=== PATIENT | female | born 1985 | race African-American/Black ===

== ENCOUNTER 2019-06-01 05:44 | Day surgery (SDC) | payer OTHER ==
[~2019-06-01 05:44] MED LIST: LISI1TAB19 PO; METF500T16 PO; PROG100C15 PO; SERT100T PO; TRAZ-118 PO; VENL37.56 PO
[2019-06-01] MEDS ORDERED: ONDANSETRON PF 4 MG/2 ML VIAL. ONE (06:59)
[2019-06-01] MEDS ORDERED: PROPOFOL 20 ML IV ONE (06:59)
[2019-06-01] MEDS ORDERED: LIDOCAINE 2% PF 5 ML VIAL. ONE (06:59)
[2019-06-01] MEDS ORDERED: DEXAMETHASONE SOD PHOS 4 MG/ML VIAL ONE (06:59)
[2019-06-01] MEDS ORDERED: ONDANSETRON PF 4 MG/2 ML VIAL. IV PRN (07:00)
[2019-06-01] MEDS ORDERED: MORPHINE SULFATE 2 MG/ML VIAL. IV PRN (07:00)
[2019-06-01] MEDS ORDERED: fentaNYL PF VIAL 100 MCG/2 ML VIAL IV PRN ×2 (07:00)
[2019-06-01] MEDS ORDERED: IV RINGERS,LACTATED 1000ML 1,000 ML IV SCH (07:00)
[2019-06-01] MEDS ORDERED: HYDROmorphone 2 MG/ML VIAL IV PRN (07:00)
[2019-06-01] MEDS ORDERED: fentaNYL PF VIAL 100 MCG/2 ML VIAL ONE (07:10)
[2019-06-01] MEDS ORDERED: SEVOFLURANE 16 TO 30 MINUTES. IH ONE (07:43)
--- NOTE | 2019-06-01 08:18 | PDOC ---
BRIEF OPERATIVE NOTE Pre-Op Diagnosis AUB Post-Op Diagnosis Same Procedure Performed Dx Hysteroscopy D and C Surgeon Isabella Blood Loss 10cc Specimens Obtained EMC Complications None MALENA SHAIKH MD Jun 01, 2019 08:18
[2019-06-01] MEDS ORDERED: HYDROcodone/APAP 5/325MG 1 TAB TABLET PO ONE (08:30)
--- NOTE | 2019-06-01 08:39 | OP ---
DATE OF SURGERY: 06/01/2019 PREOPERATIVE DIAGNOSIS: Abnormal uterine bleeding. POSTOPERATIVE DIAGNOSIS: Abnormal uterine bleeding. PROCEDURES: 1. Exam under anesthesia. 2. Diagnostic hysteroscopy, D and C with TruClear. SURGEON: Daniel Mason MD INSULATION CUTTER: None. ANESTHESIA: General. ESTIMATED BLOOD LOSS: 10 mL. FLUIDS: Crystalloid. SPECIMENS: Endometrial curettings. COMPLICATIONS: None. CONDITION: Stable. DESCRIPTION OF PROCEDURE: Risks, benefits, indications, alternatives discussed in detail with the patient. The patient was brought to OR theater, placed in dorsal lithotomy position in Jose stirrups. After adequate general anesthesia, the patient was prepped and draped in usual sterile manner. Exam under anesthesia was performed. Uterus was axial approximately 8-week size, no adnexal masses appreciated. Posterior weighted speculum was placed in the vaginal vault. Cervix was grasped with single tooth tenaculum. Cervix was sounded to 8 cm. Cervix was dilated up to receive the TruClear hysteroscope. TruClear hysteroscope was placed. No gross abnormality was seen, bilateral cornua were seen. There were no polyps or submucosal fibroids appreciated. Endometrium appeared to be in secretory state. The hysteroscope was removed. Sharp curettage was then performed. Endometrial curetting was placed on Telfa sponge and handed off the operative field. Single tooth tenaculum was removed. Puncture sites were hemostatic. Vaginal vault was wiped free of any tissue or blood. A posterior weighted speculum was removed. Procedure was terminated. Sponge, needle and instrument counts were correct x 2 per nursing staff. DANIEL MASON MD DR: MARLEN/ellyn JOB#: [id number] / [id number]
[2019-06-01 09:00] VITALS: BP 126/80
--- NOTE | 2019-06-02 15:07 | PATHOLOGY ---
[facility] Accession Number: [id number] . 01 Material submitted: . endometrium - ENDOMETRIAL CURETTINGS . 01 Clinical history: . AUB . 02 Diagnosis: Endometrial curettings: - Weakly proliferative endometrium. - Segments of endocervical mucosa showing active chronic inflammation with focal squamous metaplasia and endocervical microglandular hyperplasia. (JPM:bry; 06/02/2019) QMS 06/02/2019 0948 Local . 02 Comment: There is no evidence of endometrial hyperplasia or malignancy. . 02 Electronically signed: . Shemar Marin MD, Pathologist NPI- [id number] . 01 Gross description: . Received in formalin, labeled "Jamar, Nola, endometrial curettings", consists of friable, red-brown, hemorrhagic soft tissue admixed with mucus measuring 1.3 x 0.6 x 0.2 cm in aggregate. Entirely submitted in A1. ([facility]; 06/01/2019) [facility] 06/01/20192028 Local . 02 Pathologist provided ICD-10: N72 . 02 CPT . 075711 Specimen Comment: A courtesy copy of this report has been sent to Specimen Comment: [phone], . Specimen Comment: Report sent to Performed at: 01 [facility] [address], [place] [id number] MD Yemi Cox MD Phone: [phone] Performed at: 02 [facility] [address] [place], [place] [id number] MD Shemar Marin MD Phone: [phone]
== END 2019-06-01 09:40 | disposition home or self-care (01) ==
LOC: SURG 05:44
PROVIDERS: ATTEND Specialist
DX: N93.9 Abnormal uterine and vaginal bleeding, unspecified (principal); N71.1 Chronic inflammatory disease of uterus
CPT/HCPCS: 58558; 81025; J1100; J2001; J2405; J2704; J3010; 88305; A7015

== ENCOUNTER 2019-06-16 12:35 | Emergency (ER) | payer OTHER ==
[~2019-06-16] VITALS: Ht 177.8 cm; Wt 166.9 kg
[2019-06-16 13:02] LABS: BILIRUBIN,URINE NEGATIVE (NEG); CLARITY,URINE CLEAR; COLOR,URINE YELLOW; NITRITE,URINE NEGATIVE (NEG); PROTEIN,URINE NEGATIVE (NEG-TRACE); UROBILINOGEN,URINE 0.2 mg/dL (0.2 mg/dL)
[2019-06-16 13:05] LABS: SQUAMOUS EPITHELIAL CELL,UR MOD /LPF
[2019-06-16 13:06] LABS: RBC,URINE TNTC /HPF (0-2)
[2019-06-16 13:07] LABS: BACTERIA,URINE FEW /HPF (0-FEW)
[2019-06-16] MEDS ORDERED: MORPHINE SULFATE 4 MG/ML VIAL. IM ONE (13:30)
[2019-06-16] MEDS ORDERED: ONDANSETRON ODT 4 MG TAB.RAPDIS. PO ONE (13:45)
--- NOTE | 2019-06-16 13:56 | PHYS DOC ---
Past Medical History Past Medical History: Anxiety, Depression, Hypertension, Migraines, Other Additional Past Medical Histor: morbid obesity, thyroid cyst (benign), PCOS Past Surgical History: Other Additional Past Surgical Histo: bilat sweat gland removal from axilla,dilation and curettage,adenoidectomy Alcohol Use: Occasionally Drug Use: None Adult General Chief Complaint Chief Complaint: VAGINAL BLEEDING HPI HPI Patient is a 33 year old female who presents to the ED today complaining of vaginal bleeding that began 5 days ago. Patient states she is bleeding heavily including be close, she reports she has used for feminine pads since she woke up this morning. She is also complaining of moderate abdominal cramping with nausea. Patient states she has tried taking her hydrocodone with no relief. She states she had a hysteroscopy done on June 01, 2019 due to heavy bleeding and possibility of endometriosis. She states this is the time of the month she gets her menstrual cycle Review of Systems Review of Systems Constitutional: Denies fever or chills [] Eyes: Denies change in visual acuity, redness, or eye pain [] HENT: Denies nasal congestion or sore throat [] Respiratory: Denies cough or shortness of breath [] Cardiovascular: No additional information not addressed in HPI [] GI: Denies abdominal pain, nausea, vomiting, bloody stools or diarrhea [] : Denies dysuria or hematuria [] Musculoskeletal: Denies back pain or joint pain [] Integument: Denies rash or skin lesions [] Neurologic: Denies headache, focal weakness or sensory changes [] Endocrine: Denies polyuria or polydipsia [] All other systems were reviewed and found to be within normal limits, except as documented in this note. Current Medications Current Medications Current Medications Medications (Trade) Dose Ordered Sig/Jayshree Start Time Stop Time Status Last Admin Dose Admin Morphine Sulfate (Morphine Sulfate) 4 mg 1X ONCE 06/16/19 13:30 06/16/19 13:31 DC 06/16/19 13:47 4 MG Ondansetron HCl (Zofran Odt) 4 mg 1X ONCE 06/16/19 13:45 06/16/19 13:46 DC 06/16/19 13:47 4 MG Allergies Allergies Allergies Coded Allergies Type Severity Reaction Last Updated Verified latex Allergy Intermediate Itching 05/31/19 Yes prochlorperazine Allergy Intermediate muscle spasms 05/31/19 Yes Physical Exam Physical Exam Constitutional: Well developed, well nourished, no acute distress, non-toxic appearance. [] HENT: Normocephalic, atraumatic, bilateral external ears normal, oropharynx moist, no oral exudates, nose normal. [] Eyes: PERRLA, EOMI, conjunctiva normal, no discharge. [] Neck: Normal range of motion, no tenderness, supple, no stridor. [] Cardiovascular:Heart rate regular rhythm, no murmur [] Lungs & Thorax: Bilateral breath sounds clear to auscultation [] Abdomen: Bowel sounds normal, soft, no tenderness, no masses, no pulsatile masses. [] Pelvic exam External pelvic appears normal, cervix is visualized, no CMT, no adnexal tenderness, small amount of bright red blood noted in the vaginal vault consistent with menstruation. Skin: Warm, dry, no erythema, no rash. [] Back: No tenderness, no CVA tenderness. [] Extremities: No tenderness, no cyanosis, no clubbing, ROM intact, no edema. [] Neurologic: Alert and oriented X 3, normal motor function, normal sensory function, no focal deficits noted. [] Psychologic: Affect normal, judgement normal, mood normal. [] Current Patient Data Vital Signs Vital Signs Date Time Temp Pulse Resp B/P (MAP) Pulse Ox O2 Delivery O2 Flow Rate FiO2 06/16/19 13:47 16 97 Room Air 06/16/19 12:50 98.4 90 143/78 (99) 98.4 Lab Values Laboratory Tests Test 06/16/19 12:49 06/16/19 12:53 06/16/19 13:55 Urine Collection Type Void Urine Color Yellow Urine Clarity Clear Urine pH 6.0 Urine Specific [place] 1.025 Urine Protein Negative mg/dL (NEG-TRACE) Urine Glucose (UA) Negative mg/dL (NEG) Urine Ketones (Stick) Negative mg/dL (NEG) Urine Blood Large (NEG) Urine Nitrite Negative (NEG) Urine Bilirubin Negative (NEG) Urine Urobilinogen Dipstick 0.2 mg/dL (0.2 mg/dL) Urine Leukocyte Esterase Small (NEG) Urine RBC Tntc /HPF (0-2) Urine WBC 1-4 /HPF (0-4) Urine Squamous Epithelial Cells Mod /LPF Urine Bacteria Few /HPF (0-FEW) Urine Mucus Marked /LPF POC Urine HCG, Qualitative Hcg negative (Negative) White Blood Count 7.3 x10^3/uL (4.0-11.0) Red Blood Count 4.81 x10^6/uL (3.50-5.40) Hemoglobin 10.9 g/dL (12.0-15.5) L Hematocrit 34.5 % (36.0-47.0) L Mean Corpuscular Volume 72 fL (79-100) L Mean Corpuscular Hemoglobin 23 pg (25-35) L Mean Corpuscular Hemoglobin Concent 32 g/dL (31-37) Red Cell Distribution Width 17.6 % (11.5-14.5) H Platelet Count 327 x10^3/uL (140-400) Neutrophils (%) (Auto) 52 % (31-73) Lymphocytes (%) (Auto) 38 % (24-48) Monocytes (%) (Auto) 8 % (0-9) Eosinophils (%) (Auto) 1 % (0-3) Basophils (%) (Auto) 1 % (0-3) Neutrophils # (Auto) 3.8 x10^3/uL (1.8-7.7) Lymphocytes # (Auto) 2.8 x10^3/uL (1.0-4.8) Monocytes # (Auto) 0.6 x10^3/uL (0.0-1.1) Eosinophils # (Auto) 0.1 x10^3/uL (0.0-0.7) Basophils # (Auto) 0.1 x10^3/uL (0.0-0.2) Platelet Estimate Adequate (ADEQUATE) Large Platelets Occ Hypochromasia Slight Anisocytosis Mod Microcytosis Mod Ovalocytes Occ Sodium Level 138 mmol/L (136-145) Potassium Level 3.9 mmol/L (3.5-5.1) Chloride Level 106 mmol/L (98-107) Carbon Dioxide Level 25 mmol/L (21-32) Anion Gap 7 (6-14) Blood Urea Nitrogen 10 mg/dL (7-20) Creatinine 0.8 mg/dL (0.6-1.0) Estimated GFR (Cockcroft-Gault) 100.0 BUN/Creatinine Ratio 13 (6-20) Glucose Level 97 mg/dL (70-99) Calcium Level 8.8 mg/dL (8.5-10.1) Total Bilirubin 0.2 mg/dL (0.2-1.0) Aspartate Amino Transferase (AST) 15 U/L (15-37) Alanine Aminotransferase (ALT) 23 U/L (14-59) Alkaline Phosphatase 66 U/L (46-116) Total Protein 7.4 g/dL (6.4-8.2) Albumin 3.1 g/dL (3.4-5.0) L Albumin/Globulin Ratio 0.7 (1.0-1.7) L Laboratory Tests 06/16/19 13:55 Laboratory Tests 06/16/19 13:55 EKG EKG [] Radiology/Procedures Radiology/Procedures []PROCEDURE: PELVIS W/TV Transabdominal and transvaginal sonography of the pelvis Clinical indications: Vaginal bleeding. Status post D&C. Transabdominal sonography: Uterus and ovaries are not visualized due to bowel gas and nondistention urinary bladder. Therefore, transvaginal sonography will be performed. Transvaginal sonography: Uterus is retroverted. The longitudinal and AP and transverse dimensions of the uterus are 7.3 cm and 4.4 cm and 5.3 cm respectively. The endometrial canal measures 3.3 mm in thickness. Echogenic linear structure is seen within the endometrial canal. No uterine mass or fibroid is seen. A nabothian cyst is seen. No free fluid is evident. The right ovary measures 4.9 cm and 2.5 cm and 2.8 cm in size. A complex cyst is seen measuring 3.5 cm in size. Color Doppler flow is seen within the right ovary. The left ovary measures 4.4 cm and 2.7 cm and 3.5 cm in size and contains a prominent simple cyst measuring 3.6 cm in size. Color Doppler flow is seen within the left ovary. IMPRESSION: Linear echogenic structure is seen within the endometrial canal. This could represent coalescence of air bubbles from the recent D&C although no significant shadowing is seen. Another possibility is an IUD device. Otherwise the endometrial canal is not abnormally thickened and no uterine mass is seen. Complex right ovarian cyst and simple left ovarian cyst as discussed above. Electronically signed by: Sarath Faustin MD (06/16/2019 3:24 PM) [place] [id number] DICTATED and SIGNED BY: SARATH FAUSTIN MD DATE: 06/16/19 1524 Course & Med Decision Making Course & Med Decision Making Pertinent Labs and Imaging studies reviewed. (See chart for details) This is a 33-year-old. Patient presenting to the ED today with vaginal bleeding that began 5 days ago. She had a hysteroscopy on June 01, 2019 and believes this could be her menstrual cycle though she believes she is bleeding more than normal. She also feels the pain is more than normal. CBC with normal WBC, hemoglobin 10.9 with hematocrit of 34.9. Urine analysis is contaminated, negative urine hCG, CMP-no acute findings Pelvic ultrasound noted for-Complex right ovarian cyst and simple left ovarian cyst Patient was discharged to home. Provided prescription for pain medicine and nausea medicine. She has an ENERGY CONSERVATION REPRESENTATIVE, instructed to follow-up next week. Dragon Disclaimer Dragon Disclaimer This electronic medical record was generated, in whole or in part, using a voice recognition dictation system. Departure Departure Impression: Primary Impression: Dysfunctional uterine bleeding Additional Impression: Ovarian cyst Disposition: HOME, SELF-CARE Condition: STABLE Referrals: NO PCP (PCP) MALENA SHAIKH MD follow up with your doctor next week. Patient Instructions: Ovarian Cyst, [id number] Additional Instructions: You were evaluated in the emergency room for vaginal bleeding. You were noted to have complex ovarian cyst. Follow-up with your ENERGY CONSERVATION REPRESENTATIVE next week. Take the prescribed pain medicine as needed for pain. Come back to the ED at any point symptoms worsen. Your prescriptions were sent to the pharmacy [facility] Ondansetron (ONDANSETRON ODT) 4 Mg Tab.rapdis 1 TAB PO PRN Q6-8HRS, #16 TAB Prov: NAOMI MAURICE APRN 06/16/19 Problem Qualifiers Additional Impression: Ovarian cyst Laterality: bilateral Qualified Codes: N83.201 - Unspecified ovarian cyst, right side; N83.202 - Unspecified ovarian cyst, left side NAOMI MAURICE APRN Jun 16, 2019 13:56
[2019-06-16 14:04] LABS: BASO # 0.1 x10^3/uL (0.0-0.2); BASO % 1 % (0-3); EOS # 0.1 x10^3/uL (0.0-0.7); EOS % 1 % (0-3); HEMATOCRIT 34.5 % (36.0-47.0); HEMOGLOBIN 10.9 g/dL (12.0-15.5); LYMPH # 2.8 x10^3/uL (1.0-4.8); LYMPH % 38 % (24-48); MEAN CORPUSCULAR HEMOGLOBIN 23 pg (25-35); MEAN CORPUSCULAR HGB CONC 32 g/dL (31-37); MEAN CORPUSCULAR VOLUME 72 fL (79-100); MONO # 0.6 x10^3/uL (0.0-1.1); MONO % 8 % (0-9); NEUT # 3.8 x10^3/uL (1.8-7.7); NEUT % 52 % (31-73); PLATELET COUNT 327 x10^3/uL (140-400); RED BLOOD COUNT 4.81 x10^6/uL (3.50-5.40); RED CELL DISTRIBUTION WIDTH 17.6 % (11.5-14.5); WHITE BLOOD COUNT 7.3 x10^3/uL (4.0-11.0)
[2019-06-16 14:18] LABS: PLT ESTIMATE ADEQUATE (ADEQUATE)
[2019-06-16 14:19] LABS: ANISOCYTOSIS MOD; HYPOCHROMIA SLIGHT; MICROCYTOSIS MOD
[2019-06-16 14:20] LABS: OVALOCYTES OCC
[2019-06-16 14:23] LABS: CALCIUM 8.8 mg/dL (8.5-10.1); CREATININE 0.8 mg/dL (0.6-1.0); POTASSIUM 3.9 mmol/L (3.5-5.1)
[2019-06-16 14:31] LABS: ALBUMIN 3.1 g/dL (3.4-5.0); ALBUMIN/GLOBULIN RATIO 0.7 (1.0-1.7); TOTAL BILIRUBIN 0.2 mg/dL (0.2-1.0); TOTAL PROTEIN 7.4 g/dL (6.4-8.2)
--- NOTE | 2019-06-16 15:27 | RAD ---
Transabdominal and transvaginal sonography of the pelvis Clinical indications: Vaginal bleeding. Status post D&C. Transabdominal sonography: Uterus and ovaries are not visualized due to bowel gas and nondistention urinary bladder. Therefore, transvaginal sonography will be performed. Transvaginal sonography: Uterus is retroverted. The longitudinal and AP and transverse dimensions of the uterus are 7.3 cm and 4.4 cm and 5.3 cm respectively. The endometrial canal measures 3.3 mm in thickness. Echogenic linear structure is seen within the endometrial canal. No uterine mass or fibroid is seen. A nabothian cyst is seen. No free fluid is evident. The right ovary measures 4.9 cm and 2.5 cm and 2.8 cm in size. A complex cyst is seen measuring 3.5 cm in size. Color Doppler flow is seen within the right ovary. The left ovary measures 4.4 cm and 2.7 cm and 3.5 cm in size and contains a prominent simple cyst measuring 3.6 cm in size. Color Doppler flow is seen within the left ovary. IMPRESSION: Linear echogenic structure is seen within the endometrial canal. This could represent coalescence of air bubbles from the recent D&C although no significant shadowing is seen. Another possibility is an IUD device. Otherwise the endometrial canal is not abnormally thickened and no uterine mass is seen. Complex right ovarian cyst and simple left ovarian cyst as discussed above. Electronically signed by: Shawn Faustin MD (06/16/2019 3:24 PM) [id number]
[2019-06-16 15:30] VITALS: BP 145/81
[2019-06-16] MEDS ORDERED: HYDR-3164 PO (16:07)
[2019-06-16] MEDS ORDERED: ONDA4TAB12 PO (16:07)
== END 2019-06-16 16:15 | disposition home or self-care (01) ==
LOC: ER 12:35
DX: N83.202 Unspecified ovarian cyst, left side (principal); N93.8 Other specified abnormal uterine and vaginal bleeding; F41.9 Anxiety disorder, unspecified; F32.9 Major depressive disorder, single episode, unspecified; I10 Essential (primary) hypertension; G43.909 Migraine, unspecified, not intractable, without status migrainosus; E66.01 Morbid (severe) obesity due to excess calories; Z68.43 Body mass index [BMI] 50.0-59.9, adult; Z88.8 Allergy status to other drugs, medicaments and biological substances; Z91.040 Latex allergy status
CPT/HCPCS: 36415; 76830; 76856; 80053; 81001; 81025; 85025; 96372; 99285; J2270; Q0162